=== PATIENT | male | born 1950 | race Hispanic/Latino ===

== ENCOUNTER 2016-12-17 17:33 | Emergency (ER) | payer MEDICARE, OTHER ==
[2016-12-17 17:46] VITALS: BP 141/81; PULSE 64; RESP 18; TEMP 98.6; O2SAT 99
[2016-12-17] MEDS ORDERED: Albuterol-Ipratrop 3 mg / 0.5 (3 ml) UD INH STA (17:55)
[2016-12-17] MEDS ORDERED: Albuterol-Ipratrop 3 mg / 0.5 (3 ml) UD ONE (18:17)
[2016-12-17 18:19] LABS: BASO # 0.1 K/uL (0.0-0.2); EOS # 0.1 K/uL (0.0-0.7); EOS % 1.6 % (0.0-4.0); HEMOGLOBIN 14.8 g/dL (12.0-18.0); LYMPH % 24.8 % (20.0-40.0); MEAN CELL VOLUME 90.7 fl (80.0-94.0); MEAN CORPUSCULAR HEMOGLOBIN 31.1 pg (27.0-31.0); MEAN CORPUSCULAR HGB CONC 34.3 g/dL (33.0-37.0); MEAN PLATELET VOLUME 9.8 fl (7.2-11.7); MONO # 0.5 K/uL (0.0-0.8); MONO % 6.2 % (0.0-10.0); NEUT # 5.2 K/uL (1.8-7.0); NEUT % 66.4 % (50.0-75.0); RBC 4.75 Mil/uL (4.40-5.90); RED CELL DISTRIBUTION WIDTH 13.1 % (11.5-14.5); WHITE BLOOD COUNT 7.9 K/uL (4.8-10.8)
--- NOTE | 2016-12-17 18:22 | ED PDOC ---
HPI: SOB/CHF/COPD Time Seen by Provider: 12/17/16 17:45 Chief Complaint (Nursing): Shortness Of Breath Chief Complaint (Provider): Shortness Of Breath History Per: Patient History/Exam Limitations: no limitations Onset/Duration Of Symptoms: Hrs (x1) Current Symptoms Are (Timing): Still Present Additional Complaint(s): Brayden Casas is a 66 year old male who presents to the emergency department with a sudden onset of shortness of breath associated with mild cough and white sputum production while prolonged sitting outside 1 hour prior to arrival. Denied hemoptysis, chest pain, leg pain or edema. Patient stated he presently feels slightly better since arrival to ED. PMD: none provided Past Medical History Reviewed: Historical Data, Nursing Documentation, Vital Signs Vital Signs: Last Vital Signs Temp 98.6 F 12/17/16 17:44 Pulse 64 12/17/16 17:44 Resp 18 12/17/16 17:44 BP 141/81 12/17/16 17:44 Pulse Ox 99 12/18/16 16:29 - Medical History PMH: COPD, Emphysema - Surgical History Surgical History: Hernia Repair - Family History Family History: States: Other Other Family History: emphysema - Social History Current smoker - smoking cessation education provided: Yes Alcohol: None Drugs: Denies - Home Medications Home Medications: Ambulatory Orders Medication Instructions Recorded traMADol [Ultram] 50 mg PO TID PRN #20 tab 07/17/15 Albuterol HFA [Ventolin HFA 90 2 puff IH Q4H PRN #1 inh 12/17/16 mcg/actuation (8 g)] - Allergies Allergies/Adverse Reactions: Allergies Allergy/AdvReac Type Severity Reaction Status Date / Time No Known Allergies Allergy Verified 07/17/15 09:54 Review of Systems ROS Statement: Except As Marked, All Systems Reviewed And Found Negative Cardiovascular: Negative for: Chest Pain Respiratory: Positive for: Cough (mild), Shortness of Breath, Sputum (white). Negative for: Hemoptysis Musculoskeletal: Negative for: Leg Pain (or edema) Physical Exam - Reviewed Nursing Documentation Reviewed: Yes Vital Signs Reviewed: Yes - Physical Exam Appears: Positive for: In Acute Distress (mild respiratory) Head Exam: Positive for: ATRAUMATIC, NORMOCEPHALIC Skin: Positive for: Warm, Dry Eye Exam: Positive for: EOMI, PERRL ENT: Negative for: Pharyngeal Erythema, Tonsillar Exudate Neck: Positive for: Painless ROM, Supple Cardiovascular/Chest: Positive for: Regular Rate, Rhythm, Chest Non Tender. Negative for: Murmur Respiratory: Positive for: Rhonchi (faint diffuse), Respiratory Distress (mild) . Negative for: Accessory Muscle Use, Stridor Gastrointestinal/Abdominal: Positive for: Soft. Negative for: Tenderness Back: Positive for: Normal Inspection. Negative for: Vertebral Tenderness Extremity: Positive for: Normal ROM. Negative for: Pedal Edema, Deformity Lymphatic: Negative for: Adenopathy Neurologic/Psych: Positive for: Alert. Negative for: Motor/Sensory Deficits - Laboratory Results Result Diagrams: 12/17/16 18:14 12/17/16 18:14 - ECG O2 Sat by Pulse Oximetry: 99 (RA) Pulse Ox Interpretation: Normal Medical Decision Making Medical Decision Making: Initial Impression: Shortness of breath Differential diagnosis: COPD exacerbation; acute bronchitis, CHF; Pneumonia; ACS Initial Plan: * Type and screen * EKG * B-type natriuretic peptide * Labs * Magnesium * Phosphorous * THS * Troponin I * PTT * PT * CXR * Duoneb 3ml INH * Blood culture * Peak flow pre/post Time: 1813 --EKG: Sinus bradycardic at [address] segments. Results are similar to EKG done 07/2014. Time: 1899 --CXR FINDINGS: LINES AND TUBES: None. LUNG AND PLEURA: The lungs are hyperinflated and there is peribronchial thickening with chronic changes in both lungs. There is no focal consolidation. HEART AND MEDIASTINUM: The heart is not enlarged. The hilar and mediastinal contours are within normal limits. SKELETAL STRUCTURES: The bony structures are within normal limits for the patient's age. VISUALIZED UPPER ABDOMEN: Normal. OTHER FINDINGS: None. IMPRESSION: No active pulmonary disease. COPD. Pt feels better after nebs. No emergently significant lab abnormalities. DW pt findings and plan of care. Emphasized need to follow up with a PMD as well as quit smoking. Scribe Attestation: Documented by Cari Rutledge, acting as a scribe for Donna Gordon MD. Provider Scribe Attestation: All medical record entries made by the Scribe were at my direction and personally dictated by me. I have reviewed the chart and agree that the record accurately reflects my personal performance of the history, physical exam, medical decision making, and the department course for this patient. I have also personally directed, reviewed, and agree with the discharge instructions and disposition. Disposition - Clinical Impression Clinical Impression: COPD exacerbation Counseled Patient/Family Regarding: Studies Performed, Diagnosis, Need For Followup, Rx Given, Smoking Cessation - Disposition Referrals: [facility] [Outside] [facility] [Outside] Disposition: Routine/Home Disposition Time: 19:00 Condition: IMPROVED Prescriptions: Albuterol HFA [Ventolin HFA 90 mcg/actuation (8 g)] 2 puff IH Q4H PRN #1 inh PRN Reason: ASTHMA Instructions: How to Stop Smoking (ED), Emphysema (ED)
[2016-12-17 18:47] LABS: PROTHROMBIN TIME 11.6 Seconds (9.8-13.1)
[2016-12-17 18:48] LABS: INR 1.1 (0.9-1.2); PARTIAL THROMBOPLASTIN TIME 35.1 Seconds (25.6-37.1)
[2016-12-17 18:53] LABS: ALB/GLOB RATIO 1.4 (1.0-2.1); ALBUMIN 4.2 g/dL (3.5-5.0); ALT/SGPT 36 U/L (21-72); AST/SGOT 28 U/L (17-59); BLOOD UREA NITROGEN 14 mg/dl (9-20); CALCIUM 9.1 mg/dL (8.4-10.2); GFR AFRICAN-AMERICAN > 60; GFR NON-AFRICAN AMERICAN > 60; MAGNESIUM 1.9 MG/DL (1.6-2.3)
--- NOTE | 2016-12-17 19:09 | RAD ---
HISTORY: COMPARISON: 07/17/2014 TECHNIQUE: Chest PA and lateral FINDINGS: LINES AND TUBES: None. LUNG AND PLEURA: The lungs are hyperinflated and there is peribronchial thickening with chronic changes in both lungs. There is no focal consolidation. HEART AND MEDIASTINUM: The heart is not enlarged. The hilar and mediastinal contours are within normal limits. SKELETAL STRUCTURES: The bony structures are within normal limits for the patient's age. VISUALIZED UPPER ABDOMEN: Normal. OTHER FINDINGS: None. IMPRESSION: No active pulmonary disease. COPD.
--- NOTE | 2016-12-18 11:32 | CARD ---
APPROVED REPORT EKG Measurement Heart [id number] <Conclusion> Sinus bradycardia Voltage criteria for left ventricular hypertrophy Abnormal ECG
== END 2016-12-17 20:32 | disposition home or self-care (01) ==
LOC: H.ER 17:33
DX: J44.1 Chronic obstructive pulmonary disease with (acute) exacerbation (principal)